=== PATIENT | male | born 1995 | race Caucasian/White ===

== ENCOUNTER 2020-04-03 22:31 | Emergency (ER) | payer OTHER ==
[~2020-04-03] VITALS: Ht 167.6 cm; Wt 82.1 kg
[2020-04-03] MEDS ORDERED: AUGMENTIN 875 MG TAB PO ONE (23:00)
--- NOTE | 2020-04-03 23:37 | REPVR ---
PROCEDURE INFORMATION: Exam: XR Right Hand Exam date and time: 04/03/2020 11:00 PM Age: 24 years old Clinical indication: Other: Laceration dog bite; Additional info: Laceration, dog bite TECHNIQUE: Imaging protocol: XR Right hand. Views: 3 or more views. COMPARISON: No relevant prior studies available. FINDINGS: Bones/joints: Bony structures are aligned normally. Degree of osseous mineralization is age-appropriate. No acute fracture. No concerning osseous lesion. Joint spaces of the hand are well-maintained. Soft tissues: Soft tissue air over the interspace between the ring finger and small finger base. No evidence of soft tissue opaque foreign body. IMPRESSION: Soft tissue laceration between the base of the index finger and small finger without underlying osseous deformity or foreign body Electronically signed by: Miles Sanchez On 04/03/2020 23:37:17 PM
[2020-04-04] MEDS ORDERED: POLYSPORIN TOPICAL OINTMENT 15GM TOP ONE (02:30)
[2020-04-04] MEDS ORDERED: AUGM875T28 PO (02:33)
[2020-04-04 02:41] VITALS: BP 128/70
== END 2020-04-04 02:49 | disposition home or self-care (01) ==
LOC: M ED 22:31
DX: S61.451A Open bite of right hand, initial encounter (principal); W54.0XXA Bitten by dog, initial encounter; Y92.9 Unspecified place or not applicable; Y93.9 Activity, unspecified; Y99.9 Unspecified external cause status